=== PATIENT | female | born 1985 | race Caucasian/White ===

== ENCOUNTER 2019-09-25 17:39 | Observation (INO) | payer OTHER ==
[2019-09-25] MEDS ORDERED: Ondansetron PF 4 MG/2 ML Vial ONE (18:02)
[2019-09-25 18:27] LABS: #Lymphocytes 1.4 thou/uL (1.20-3.40); #Monocytes 0.1 thou/uL (0.11-0.59); #Neutrophils 5.3 thou/uL (1.40-6.50); %Basophils 0.5 % (0.0-1.0); %Eosinophils 0.1 % (0.0-10.0); %Lymphocytes 20.2 % (21.0-51.0); %Monocytes 1.5 % (0.0-10.0); %Neutrophils 77.7 % (42.0-75.0); Hemoglobin 11.1 g/dL (12.0-16.0); Mean Corpuscular HGB CONC 31.7 g/dL (32.0-36.0); Mean Corpuscular Hemoglobin 28.1 pg (27.0-31.0); Mean Corpuscular Volume 88.7 fL (78.0-98.0); Mean Platelet Volume 8.5 fL (7.4-10.4); Platelet Count 364 thou/uL (130-400); RBC Distribution Width 14.7 % (11.5-14.5); Red Blood Cell (RBC) Count 3.94 mill/uL (4.20-5.40); White Blood Cell (WBC) Count 6.8 thou/uL (4.8-10.8)
[2019-09-25 18:34] LABS: BHCG - Serum Negative (NEGATIVE); Pregs Control Background? CLEAR/WHITE (CLR/WHITE); Pregs Control Bar Appear? YES (CONTROL BAR)
[2019-09-25] MEDS ORDERED: Haloperidol Lactate 5 MG/ML VIAL ONE (18:38)
[2019-09-25 18:41] LABS: ALT (SGPT) 14 U/L (8-55); AST (SGOT) 12 U/L (5-34); Albumin 3.8 g/dL (3.5-5.0); Alkaline Phosphatase 66 U/L (40-110); Anion Gap 13 mmol/L (10-20); BUN (Urea Nitrogen) 5 mg/dL (7.0-18.7); Bilirubin, Total 0.2 mg/dL (0.2-1.2); Calc. Creatinine Clearance 0 mL/min (70-130); Calcium 9.9 mg/dL (7.8-10.44); Carbon Dioxide 24 mmol/L (22-29); Chloride 111 mmol/L (98-107); Estimated GFR-MDRD 69; Globulin 2.9 g/dL (2.4-3.5); Glucose 144 mg/dL (70-105); Lipase 46 U/L (8-78); Potassium 3.8 mmol/L (3.5-5.1); Protein, Total 6.7 g/dL (6.0-8.3); Sodium 144 mmol/L (136-145)
[2019-09-25 18:52] LABS: Bilirubin Negative (Negative); Blood, Urine Negative (Negative); Glucose, Urine (Dipstick) Negative (Negative); Leukocyte Small (Negative); Nitrite Negative (Negative); Protein, Urine (Dipstick) Negative (Neg-Trace); Urobilinogen 0.2 mg/dL (Less than 2)
[2019-09-25] MEDS ORDERED: Promethazine HCl 25 MG/ML VIAL ONE (18:56)
[2019-09-25 18:57] LABS: Clarity Hazy (Clear)
[2019-09-25 19:02] LABS: Bacteria/HPF 1+ HPF (None Seen); RBC/HPF None Seen HPF (0-3)
[2019-09-25] MEDS ORDERED: HYDROcodone/Acetaminophen 5/325 mg Tablet PO PRN ×2 (22:35)
[2019-09-25] MEDS ORDERED: Ondansetron PF 4 MG/2 ML Vial IVP PRN (22:35)
[2019-09-25] MEDS ORDERED: Sodium Chloride 0.9% 1,000 ML IV SCH (22:35)
[2019-09-25] MEDS ORDERED: Acetaminophen 325 MG TAB PO PRN (22:35)
[2019-09-25] MEDS ORDERED: Ondansetron ODT 4 MG TAB SL PRN (22:35)
[2019-09-25 22:52] VITALS: BMI 37.7
[2019-09-25] MEDS ORDERED: Calcium Carbonate 500 MG ChewTAB PO PRN (23:48)
[2019-09-26] MEDS ORDERED: Promethazine HCl 25 MG/ML VIAL IM/IV PRN (00:14)
[2019-09-26] MEDS ORDERED: Enoxaparin Sodium 40 MG/0.4 ML SYRINGE SC SCH (00:30)
[2019-09-26] MEDS: Lactated Ringer's 1,000 ML IV SCH ×3 (00:42→18:05)
[2019-09-26] MEDS: clonazePAM 1 MG TAB PO PRN ×2 (00:42→16:24)
[2019-09-26] MEDS: Promethazine HCl 25 MG in Sodium Chloride 0.9% 50 ML IVPB PRN ×4 (00:50→23:43)
--- NOTE | 2019-09-26 01:03 | PDOC.FPRHP ---
- History of Present Illness Chief Complaint: n/v History of Present Illness: 34yo CF with h/o Scottsburg's, hoshimotos, PTSD, chronic pain who presents as transfer from [place] for intractable n/v and abdominal pain. Pt states sxs started about 7 days ago, had increased n/v, spent about 4 days in bed with generalized fatigue. Then presented to [facility] where she was admitted for 3 days, discharged this morning. Per pt report they did not find any cause of her n/v or pain and stated she was safe for discharge today. She then presented to [facility] in [place] where she was told her labs and vitals were normal and no reason for admission. Then presented to [facility] for further eval and management. Pt states abdominal pain is diffuse with worsening in the LLQ. States pain is sharp-stabbing in nature, rated 6->8/10. Intermittent. Worse with bowel movement and urination. Had associated diarrhea for 2 days which has since resolved for past 2 days. Subjective fever and chills. Decreased PO intake, vomiting with any PO solid or liquids. Pain radiates to back. States nausea has been improved with phenergan and currently tolerating crackers and soda. Endorses dysuria, no frequency or hematuria. ED Course: Given morphine 2mg x2, zofran, phenergan, and transferred to [facility] for further eval and management. - Allergies/Adverse Reactions Allergies Allergy/AdvReac Type Severity Reaction Status Date / Time Penicillins Allergy Verified 09/25/19 22:44 clindamycin AdvReac Nausea Verified 09/25/19 22:44 gabapentin AdvReac Nausea Verified 09/25/19 22:44 - Home Medications Medication Instructions Recorded Confirmed Type HYDROcodone/Acetaminophen [[place] 1 each PO QID PRN 09/25/19 09/25/19 History 7.5-325 Tablet] Hydrocortisone 10 mg PO 1700 09/25/19 09/25/19 History Hydrocortisone 20 mg PO DAILY 09/25/19 09/25/19 History Levothyroxine Sodium [Synthroid] 75 mcg PO DAILY 09/25/19 09/25/19 History Ondansetron [Ondansetron Odt] 8 mg PO QID PRN 09/25/19 09/25/19 History Promethazine HCl [Phenergan 25 mg MN Q4HR PRN 09/25/19 09/25/19 History Suppository] clonazePAM [Clonazepam] 1 mg PO TID PRN 09/25/19 09/25/19 History hydrOXYzine [Atarax] 25 mg PO BID 09/25/19 09/25/19 History - History PMHx: Primary Scottsburg's for past 8 years, Hoshimotos, PTSD, anxiety. H/o steroid psychosis. PSHx: Partial thyroidectomy 09/04 for suspicious nodule with noncancerous pathology, carlos, tonsilectomy FHx: Unsure, parents . PVD in grandmother. Social: E-cigs, no EtOH or illicits. . - Review of Systems General: reports: fever/chills, weight/appetite/sleep changes, fatigue Eyes: denies: vision changes ENT: denies: nasal congestion, rhinorrhea Respiratory: denies: cough, congestion, shortness of breath Cardiovascular: denies: chest pain, palpitation, edema Gastrointestinal: reports: nausea, vomiting, diarrhea (now resolved), abdominal pain (LLQ radiating to back) Genitourinary: reports: dysuria. denies: incontinence, discharge Skin: denies: rashes Musculoskeletal: reports: pain (chronic back pain) Psychological: reports: anxiety (increased with recent hospitalizations) - Vital signs BP: 104/61 HR: 79 RR: 18 Pox: 99% on RA Wt: 96kg - Physical Exam Constitutional: NAD, awake, alert and oriented, well developed (very anxious) HEENT: PERRLA, EOMI, oropharynx clear, other (dry mucous membranes) Neck: supple, trachea midline, other (scar from recent thyroidectomy, c/d/i) Heart: RRR, normal S1/S2, no murmurs/rubs/gallops, pulses present, no edema Lungs: CTAB, no respiratory distress, good air movement, no rales/rhonchi, no wheezing Abdomen: soft, bowel sounds present, other (mild diffuse TTP, worse LLQ. CVA tenderness. No rebound or guarding. No paritoneal signs.) Neurological: no focal deficit Psychiatric: other (anxious) FMR H&P: Results - Labs Result Diagrams: 09/26/19 05:00 09/26/19 05:00 Lab results: WBC 6.8 thou/uL (4.8-10.8) 09/25/19 18:15 Hgb 11.1 g/dL (12.0-16.0) L 09/25/19 18:15 Hct 34.9 % (36.0-47.0) L 09/25/19 18:15 MCV 88.7 fL (78.0-98.0) 09/25/19 18:15 Plt Count 364 thou/uL (130-400) 09/25/19 18:15 Neutrophils % 77.7 % (42.0-75.0) H 09/25/19 18:15 Sodium 144 mmol/L (136-145) 09/25/19 18:15 Potassium 3.8 mmol/L (3.5-5.1) 09/25/19 18:15 Chloride 111 mmol/L (98-107) H 09/25/19 18:15 Carbon Dioxide 24 mmol/L (22-29) 09/25/19 18:15 BUN 5 mg/dL (7.0-18.7) L 09/25/19 18:15 Creatinine 0.92 mg/dL (0.6-1.1) 09/25/19 18:15 Glucose 144 mg/dL (70-105) H 09/25/19 18:15 Calcium 9.9 mg/dL (7.8-10.44) 09/25/19 18:15 Total Bilirubin 0.2 mg/dL (0.2-1.2) 09/25/19 18:15 AST 12 U/L (5-34) 09/25/19 18:15 ALT 14 U/L (8-55) 09/25/19 18:15 Alkaline Phosphatase 66 U/L (40-110) 09/25/19 18:15 Serum Total Protein 6.7 g/dL (6.0-8.3) 09/25/19 18:15 Albumin 3.8 g/dL (3.5-5.0) 09/25/19 18:15 Lipase 46 U/L (8-78) 09/25/19 18:15 Urine Ketones Negative mg/dL (Negative) 09/25/19 18:38 Urine Blood Negative (Negative) 09/25/19 18:38 Urine Nitrite Negative (Negative) 09/25/19 18:38 Ur Leukocyte Esterase Small (Negative) H 09/25/19 18:38 Urine RBC None Seen HPF (0-3) 09/25/19 18:38 Urine WBC 4-6 HPF (0-3) A 09/25/19 18:38 Ur Squamous Epith Cells 11-20 HPF (0-3) A 09/25/19 18:38 Urine Bacteria 1+ HPF (None Seen) A 09/25/19 18:38 FMR H&P: A/P - Problem List (1) Intractable nausea and vomiting Current Visit: Yes Status: Acute Code(s): R11.2 - NAUSEA WITH VOMITING, UNSPECIFIED (2) Abdominal pain Current Visit: Yes Status: Acute Code(s): R10.9 - UNSPECIFIED ABDOMINAL PAIN Qualifiers: Abdominal location: left lower quadrant Qualified Code(s): R10.32 - Left lower quadrant pain (3) Scottsburg disease Current Visit: Yes Status: Chronic Code(s): E27.1 - PRIMARY ADRENOCORTICAL INSUFFICIENCY (4) Hypothyroidism Current Visit: Yes Status: Chronic Code(s): E03.9 - HYPOTHYROIDISM, UNSPECIFIED (5) Anxiety Current Visit: Yes Status: Chronic Code(s): F41.9 - ANXIETY DISORDER, UNSPECIFIED (6) Chronic pain Current Visit: Yes Status: Chronic Code(s): G89.29 - OTHER CHRONIC PAIN - Plan 34yo CF with h/o Addisons, anxiety, PTSD, chronic pain presents for intractable n/v and LLQ abdominal pain #Intractable n/v with LLQ abdominal pain - Sxs for ~1week, decreased PO intake, recently admitted to [facility] in [facility] for same sxs - VSS, MMM, lytes WNL. Lipase 46, UPT neg, LFTs WNL. - Will obtain records from recent hospitalization - Unclear etiology - Addisons flare vs recent gastroenteritis causing need for stress does steroids vs anxiety vs UTI - No imaging in ED, will obtain CT Abd/pelvis - UA from ED +LE, WBC, and bacteria however many squamous - will obtain repeat UA via straight cath - Prn zofran and phenergan - Will check Mg, Phos, and A1C - Will need GI consult in AM #Scottsburg's - Will increase home hydrocortisone 3x for stress doses -> 60mg in AM and 30mg in PM - LR @ 120cc/hr - BP stable, will cont to monitor VSS #Chronic Abdominal pain - Will cont home [place] prn #Anxiety/PTSD - Will cont home Klonopin prn #Hypothyroidism - Will cont home levothyroxine, will check TSH - recent partial thyroidectomy -> suspicious nodule but benign pathology Code: Full Diet: Regular as tolerated IVF: LR @120cc/hr VTE: Lovenox PCP: JAMAR Lopez Disposition/LOS: Admit to medical obs for intractable n/v, will obtain CT abd/pelvis, monitor lytes, prn nausea meds. Recommend GI consult in AM. FMR H&P: Upper Level - Pertinent history I was present with the internal corrosion specialist during the HPI. I made edits to above document as needed. I agree with above. - Pertinent findings Pt was resting comfortably in bed. Pt was shaking at times during the interview. Mucous membranes were moist. Cap refill<2. Abdomen: TTP in all quadrants. No rebound or guarding. No masses. Psoas sign negative. CVA tenderness noted bilaterally. - Plan Date/Time: 09/26/19 5654 I, Arnulfo Moss, PGY-3, have evaluated this patient and agree with findings/ plan as outlined by internal corrosion specialist resident. Pertinent changes/additions are listed here. I have reviewed the above plan and made edits as needed. See above for detailed plan. At this time will admit for intractable n/v. Pt does not appear to be acutely ill or malnourished even though this problem has been present for 7 days. Will get records from previous hospitlization. Will continue prn nausea medicine. May adjust regimen to reglan as possibly gastroparesis. Possible cause could be related to norco use. Discussed with patient. Will continue for now to prevent withdrawl. Will continue to advance diet as tolerated. May need GI consult as patient has had multiple evaluations at multiple hospitals without resolution of sx's. Addendum - Attending - Attending Attestation Date/Time: 09/26/19 8806 I personally evaluated the patient and discussed the management with Dr. Benito. I agree with the History, Examination, Assessment and Plan documented above with any addition or exceptions noted below.
[2019-09-26 01:09] LABS: Magnesium 1.7 mg/dL (1.6-2.6); Phosphorus 2.6 mg/dL (2.3-4.7)
--- NOTE | 2019-09-26 05:14 | PDOC.FM ---
- Subjective Subjective: Mrs. Lewis was sleeping soundly in her hospital bed at the time of evaluation. She was extremely difficult to rouse, and only mumbled a few words at a time when asked any questions about her current nausea and pain levels. Per nursing staff, she has not complained of any breakthrough pain and was able to complete her PO contrast regimen in preparation for her CT ABD/Pelvis later this morning. - Objective Vital Signs & Weight: Vital Signs (12 hours) Pulse Resp BP Pulse Ox 09/25/19 22:08 79 18 104/61 99 Weight Weight 96.661 kg I&O: 09/24/19 09/25/19 09/26/19 06:59 06:59 06:59 Intake Total 50 Balance 50 Result Diagrams: 09/26/19 05:00 09/26/19 05:00 Phys Exam - Physical Examination Constitutional: NAD Neck: supple, full ROM Respiratory: no wheezing, no rales, no rhonchi, clear to auscultation bilateral Cardiovascular: RRR, no significant murmur, no rub Gastrointestinal: soft, non-tender, positive bowel sounds Musculoskeletal: no edema, pulses present Neurological: non-focal, moves all 4 limbs Deviation from normal: Sleepy, minimally aware of surroundings Skin: no rash Dx/Plan - Plan Plan: 1. Intractable N/V, w/ LLQ ABD Pain -Symptoms have been ongoing for ~1W, w/ decreased PO intake -Patient was recently admitted to [facility] in [facility] for same symptoms, DC'd w/o diagnosis -DC'd from multiple other [facility] hospitals with minimal change from above -Physical exam unremarkable - CBC and CMP generally unremarkable -Lipase: 46 / AST: 12 / ALT: 14 -bHCG: Negative -Will obtain records from recent hospitalization -Unclear etiology - Addisonian Flare vs. gastroenteritis vs. anxiety vs. UTI -CT ABD/Pelvis: Pending -UA revealed +LE, WBC, and +bacteria, but also squamous epithelial cells - will obtain repeat UA via straight cath -PRN Zofran and Phenergan, consider Reglan or Haldol for breathrough nausea -M.7 -Phos: 2.6 -HgA1C: 5.0 -Consider GI consult on 09/26 2. Nunda's Disease -Will increase home hydrocortisone 3x for stress doses -> 60mg in AM and 30mg in PM -LR @ 120 ml/hr -BP stable, will continue to monitor VSS 3. Chronic ABD Pain -Will continue home [place] 7.5/325 regimen 4. Anxiety/PTSD -Will continue home Clonazepam regimen 5. Hypothyroidism -TSH: 2.3 -Will continue home Levothyroxine regimen -Recent partial thyroidectomy for suspicious nodule - pathology benign Code: Full Diet: Regular IVF: LR @120cc/hr VTE: Lovenox 40 mg SC PCP: JAMAR - [place] Dispo: Patient is currently stable on Medical Floor. Aim to control N/V and await results of CT ABD/Pelvis and UA. 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 Evaluate clinically for resolution of symptoms - consider GI consult in AM. Addendum - Attending - Attending Attestation Date/Time: 09/26/19 5335 I personally evaluated the patient and discussed the management with Dr. Alva I agree with the History, Examination, Assessment and Plan documented above with any addition or exceptions noted below- Patient sleepy but arouses. States abdominal pain has continued primarily in LUQ and epigastric area. No vomiting since yesterday. Afebrile VSS. A/P: 1) Abdominal pain unclear etiology- CT abd/ pelvis pending. Continue antiemetics. GI consult.
[2019-09-26] MEDS: Levothyroxine Sodium 75 MCG TAB PO SCH ×2 (05:57→09:21)
[2019-09-26 06:05] LABS: #Lymphocytes 3.5 thou/uL (1.20-3.40); #Monocytes 0.6 thou/uL (0.11-0.59); #Neutrophils 3.3 thou/uL (1.40-6.50); %Basophils 0.6 % (0.0-1.0); %Eosinophils 0.5 % (0.0-10.0); %Lymphocytes 47.1 % (21.0-51.0); %Monocytes 7.5 % (0.0-10.0); %Neutrophils 44.4 % (42.0-75.0); Hemoglobin 9.5 g/dL (12.0-16.0); Mean Corpuscular HGB CONC 32.9 g/dL (32.0-36.0); Mean Corpuscular Volume 88.1 fL (78.0-98.0); Mean Platelet Volume 8.4 fL (7.4-10.4); Platelet Count 340 thou/uL (130-400); RBC Distribution Width 14.2 % (11.5-14.5); Red Blood Cell (RBC) Count 3.28 mill/uL (4.20-5.40); White Blood Cell (WBC) Count 7.4 thou/uL (4.8-10.8)
[2019-09-26 06:35] LABS: ALT (SGPT) 9 U/L (8-55); AST (SGOT) 10 U/L (5-34); Albumin 3.1 g/dL (3.5-5.0); Alkaline Phosphatase 49 U/L (40-110); Anion Gap 9 mmol/L (10-20); BUN (Urea Nitrogen) 6 mg/dL (7.0-18.7); Bilirubin, Total 0.2 mg/dL (0.2-1.2); Calc. Creatinine Clearance 150 mL/min (70-130); Calcium 9.2 mg/dL (7.8-10.44); Carbon Dioxide 25 mmol/L (22-29); Chloride 112 mmol/L (98-107); Estimated GFR-MDRD 82; Globulin 2.3 g/dL (2.4-3.5); Glucose 78 mg/dL (70-105); Potassium 3.6 mmol/L (3.5-5.1); Protein, Total 5.4 g/dL (6.0-8.3); Sodium 142 mmol/L (136-145)
[2019-09-26] MEDS: HYDROcodone/Acetaminophen 7.5/325 mg Tablet PO PRN ×2 (07:14→14:35)
[2019-09-26 07:39] LABS: Bacteria/HPF None Seen HPF (None Seen); Bilirubin Negative (Negative); Blood, Urine Negative (Negative); Clarity Clear (Clear); Glucose, Urine (Dipstick) Normal (Negative); Leukocyte Negative Leu/uL (Negative); Nitrite Negative (Negative); Protein, Urine (Dipstick) Negative (Neg-Trace); RBC/HPF 0-3 HPF (0-3); Squamous Epithelial 0-3 HPF (0-3); Urobilinogen Normal mg/dL (Less than 2); WBC/HPF 0-3 HPF (0-3)
[2019-09-26] MEDS ORDERED: Prevnar 13-Val Conj/PF 0.5 ML SYRINGE IM ONE (09:00)
[2019-09-26] MEDS: Famotidine 20 MG TAB PO SCH ×2 (09:07→21:01)
[2019-09-26] MEDS: hydrOXYzine 25 MG TAB PO SCH ×2 (09:07→21:01)
--- NOTE | 2019-09-26 09:08 | CT ---
CT Abdomen Pelvis W Con History: Nausea and vomiting left lower quadrant pain Comparison: CT abdomen and pelvis April 2018 Findings: Mild atelectatic changes lung bases. No pericardial effusion. There is a hypodensity in hepatic segment IVb suggestive of a cyst. Prior cholecystectomy. The spleen, adrenal glands, pancreas are unremarkable. No hydronephrosis. No dilated loops of large or small bowel. No dilated loops of large or small bowel. Impression: 1. No acute intra-abdominal abnormality. 2. Mild superficial anterior subcutaneous edema of the right leg the mildly enlarged superficial lymp h node axial image 94. Recommend correlation for underlying cellulitis.
[2019-09-26] MEDS: Hydrocortisone Sod Succ/PF 100 mg/2 ml Vial IVP SCH (09:27)
[2019-09-26] MEDS: Enoxaparin Sodium 40 MG/0.4 ML SYRINGE SC SCH (09:32)
[2019-09-26] MEDS ORDERED: Dicyclomine 10 MG CAP PO SCH (14:42)
[2019-09-26 16:24] LABS: Iron 29 ug/dL (50-170); Iron Binding Capacity, Total 304 mcg/dL (265-497)
[2019-09-26] MEDS ORDERED: Ketorolac Tromethamine 60 MG/2 ML VIAL IM SCH (18:15)
[2019-09-26] MEDS: Dicyclomine 10 MG/5 ML UDCUP PO SCH ×2 (18:17→21:24)
[2019-09-26] MEDS ORDERED: Haloperidol Lactate 5 MG/ML VIAL SLOW IVP PRN (20:08)
[2019-09-26] MEDS ORDERED: Hydrocortisone Sod Succ/PF 100 mg/2 ml Vial IVP SCH (21:00)
[2019-09-26] MEDS: Morphine 4 MG/ML VIAL SLOW IVP PRN (21:16)
[2019-09-27] MEDS: Lactated Ringer's 1,000 ML IV SCH ×2 (04:22→13:45)
[2019-09-27] MEDS ORDERED: Morphine 2 MG/ML SYRINGE SLOW IVP SCH (04:45)
[2019-09-27 05:46] LABS: #Eosinphils 0.1 thou/uL (0.0-0.7); #Lymphocytes 2.9 thou/uL (1.20-3.40); #Monocytes 0.5 thou/uL (0.11-0.59); #Neutrophils 3.3 thou/uL (1.40-6.50); %Basophils 0.6 % (0.0-1.0); %Eosinophils 0.9 % (0.0-10.0); %Lymphocytes 42.4 % (21.0-51.0); %Monocytes 7.3 % (0.0-10.0); %Neutrophils 48.8 % (42.0-75.0); Hemoglobin 9.9 g/dL (12.0-16.0); Mean Corpuscular HGB CONC 32.7 g/dL (32.0-36.0); Mean Corpuscular Hemoglobin 28.9 pg (27.0-31.0); Mean Corpuscular Volume 88.4 fL (78.0-98.0); Mean Platelet Volume 8.2 fL (7.4-10.4); Platelet Count 360 thou/uL (130-400); RBC Distribution Width 14.2 % (11.5-14.5); Red Blood Cell (RBC) Count 3.44 mill/uL (4.20-5.40); White Blood Cell (WBC) Count 6.7 thou/uL (4.8-10.8)
[2019-09-27 06:12] LABS: ALT (SGPT) 10 U/L (8-55); AST (SGOT) 10 U/L (5-34); Albumin 3.1 g/dL (3.5-5.0); Alkaline Phosphatase 53 U/L (40-110); Anion Gap 12 mmol/L (10-20); BUN (Urea Nitrogen) 5 mg/dL (7.0-18.7); Bilirubin, Total 0.2 mg/dL (0.2-1.2); Calc. Creatinine Clearance 150 mL/min (70-130); Calcium 9.4 mg/dL (7.8-10.44); Carbon Dioxide 23 mmol/L (22-29); Chloride 111 mmol/L (98-107); Estimated GFR-MDRD 80; Globulin 2.4 g/dL (2.4-3.5); Glucose 84 mg/dL (70-105); Potassium 3.7 mmol/L (3.5-5.1); Protein, Total 5.5 g/dL (6.0-8.3); Sodium 142 mmol/L (136-145)
[2019-09-27] MEDS: Promethazine HCl 25 MG in Sodium Chloride 0.9% 50 ML IVPB PRN (06:27)
[2019-09-27] MEDS: Levothyroxine Sodium 75 MCG TAB PO SCH (06:30)
--- NOTE | 2019-09-27 09:12 | PDOC.FM ---
- Subjective Subjective: Mrs. Lewis was seated in a wheelchair and being prepped for transport to her EGD at the time of evaluation. She continues to complain of abdominal pain and 1 episode of nausea, but denies any chest pain, shortness of breath or diarrhea. - Objective Vital Signs & Weight: Vital Signs (12 hours) Temp Pulse Resp BP Pulse Ox 09/27/19 08:00 98.1 F 74 18 131/61 99 09/27/19 05:53 97/53 L 09/27/19 04:22 97.9 F 79 18 90/55 L 96 Weight Weight 98.928 kg I&O: 09/26/19 09/27/19 09/28/19 06:59 06:59 06:59 Intake Total 50 Balance 50 Result Diagrams: 09/27/19 05:13 09/27/19 05:13 Phys Exam - Physical Examination Constitutional: NAD HEENT: moist MMs, sclera anicteric, oral pharynx no lesions Neck: supple, full ROM Respiratory: no wheezing, no rales, no rhonchi, clear to auscultation bilateral Cardiovascular: RRR, no significant murmur, no rub Gastrointestinal: soft, non-tender, no distention Musculoskeletal: no edema, pulses present Neurological: non-focal, moves all 4 limbs Psychiatric: normal affect Skin: no rash Dx/Plan - Plan Plan: 1. Intractable N/V, w/ LLQ ABD Pain -Symptoms have been ongoing for ~1W, w/ decreased PO intake -Patient was recently admitted to [facility] in [facility] for same symptoms, DC'd w/o diagnosis -DC'd from multiple other [facility] with minimal change from above -Physical exam unremarkable - CBC and CMP generally unremarkable -Lipase: 46 / AST: 12 / ALT: 14 -bHCG: Negative -Unclear etiology - Addisonian Flare vs. gastroenteritis vs. anxiety vs. UTI -CT ABD/Pelvis: NAF -UA (Straight Cath): Unremarkable -PRN Zofran and Phenergan, consider Reglan or Haldol for breakthrough nausea -M.7 -Phos: 2.6 -HgA1C: 5.0 -GI Consult: Pending, plan for EGD later this AM 2. Rahul's Disease -Will increase home hydrocortisone 3x for stress doses -> 60mg in AM and 30mg in PM -Continue stress dosing prior to EGD -LR @ 120 ml/hr -BP stable, will continue to monitor VSS 3. Chronic ABD Pain -Will continue home [place] 7.5/325 regimen -Morphine 4 mg IVP Q4H if patient remains normotensive 4. Anxiety/PTSD -Will continue home Clonazepam regimen 5. Hypothyroidism -TSH: 2.3 -Will continue home Levothyroxine regimen -Recent partial thyroidectomy for suspicious nodule - pathology benign Code: Full Diet: Regular IVF: LR @120cc/hr VTE: Lovenox 40 mg SC PCP: JAMAR - [place] Dispo: Patient is currently stable on Medical Floor. Aim to control N/V and await GI recommendations and results of EGD. 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 Evaluate clinically for resolution of symptoms. Expected LOS < 24H Addendum - Attending - Attending Attestation Date/Time: 09/27/19 1212 I personally evaluated the patient and discussed the management with Dr. Rodriges I agree with the History, Examination, Assessment and Plan documented above with any addition or exceptions noted below. Patient now sp EGD. Noted to have gastritis. Bx taken. Likely related to steroid use. Will start carafate. ONIEL antiemetic. Re-evaluate later this afternoon. Stop IVFs. Likely d/c to home. Anitra
--- NOTE | 2019-09-27 09:33 | CON ---
DATE OF CONSULTATION: 09/26/2019 REASON FOR CONSULTATION: Abdominal pain, nausea, and vomiting, persistent. HISTORY OF PRESENT ILLNESS: Ligia Lewis is a very pleasant 34-year-old female, who was hospitalized a week ago at [facility] in [place] for 3 days for abdominal pain, nausea, and vomiting. Her symptoms started approximately 7 days ago. She is unable to keep anything down. Every time she tried to eat or drink, something keeps coming out. She has had recurrent nausea and vomiting over the last 7 days. She also had diarrhea for a couple of days and diarrhea resolved. She had had no fever. There is no history of hematochezia. No history of any melena. No similar episodes in the past. The patient's workup was basically negative in [place], and sent home on some medication for nausea and vomiting. She went back to [facility] in [place] with the same symptoms and the evaluation negative. Subsequently, she went to [facility] and she was hospitalized at [facility]. At the time of the consultation, she appears very comfortable, in no acute distress. She states that she wants some pain medication. The pain is predominantly over the left lower quadrant and going towards the back. She has had no dysuria, hematuria, or frequent urination. She had diarrhea transiently throughout the day and then resolved. The patient has had no fever or chills. She has no other relevant symptoms. Denies any heartburn or indigestion. She has no abdominal pain. She has persistent nausea and vomiting and was unable to keep anything down. The patient's blood tests including CBC, chem-7, liver function tests, amylase and lipase are normal. She also has abdominal CAT scan. The CAT scan basically is negative. She has no other known history. ALLERGIES: NONE. SOCIAL HISTORY: The patient is . She does use e-cigarettes. Does not drink any alcohol. No history of drug abuse. MEDICAL ILLNESSES: 1. Obesity. 2. 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 3. Estrella disease/hypothyroidism. 4. PTSD. 5. Chronic anxiety. SURGERIES: 1. Laparoscopic cholecystectomy many years ago, but she is not sure whether she had gallstones. 2. Partial parathyroidectomy 3 weeks ago for a thyroid nodule and biopsy came back noncancerous. 3. No other surgeries. FAMILY HISTORY: Both parents when she was 14 years old. MENSTRUAL HISTORY: Irregular cycles. LMP 3 weeks ago. MEDICATION LIST: Reviewed. REVIEW OF SYSTEMS: A 10 point system reviewed. CONSTITUTIONAL: No history of any fever. No history of weight loss. Energy level is good until a week ago. HEAD: No chronic headache. No dizziness. EYES: No diplopia. No double vision. ENT: No nose bleed. No sore throat. No hearing loss. NECK: Recent thyroidectomy 3 weeks ago. LUNGS: No chronic coughing. No hemoptysis. No dyspnea. CARDIOVASCULAR SYSTEM: No chest pain. No palpitation. No dyspnea, orthopnea, or PND. GI: As in history of present illness. : No dysuria or hematuria. MUSCULOSKELETAL: Unremarkable. NEUROLOGIC: Unremarkable. ENDOCRINOLOGIC: Unremarkable. HEMATOLOGIC: Unremarkable. PHYSICAL EXAMINATION: GENERAL: She appears very comfortable, in no acute distress. She is obese. VITAL SIGNS: Pulse is 76, blood pressure 127/68. HEENT: Conjunctivae are clear. NECK: Supple. No adenitis or thyromegaly. CARDIOVASCULAR SYSTEM: 1st and 2nd heart sounds normal. LUNGS: Clear to auscultation. ABDOMEN: Soft. Abdomen exam is very benign. Abdomen is slightly tender over the left lower quadrant to palpation. Overall, the exam is very benign . abdomen. EXTREMITIES: No edema. LABORATORY DATA: WBC 6400, hemoglobin 11.1, hematocrit 32.9, MCV normal, polymorphs 77, lymphocytes 20. Chem-7 is normal. Lipase is now 46. Liver function tests normal. Glucose 82. Abdominal CAT scan shows no acute findings to explain the patient's symptoms. CLINICAL IMPRESSION: 1. A 34-year-old female with persistent nausea, vomiting, and abdominal pain. The physical finding is almost benign as her abdomen is very benign. Also lab data showed no leukocytosis. Her liver function tests are normal. Also, her lipase is normal. Several possibilities also including viral syndrome. 2. Irritable bowel syndrome , worsening of Meriden's disease, which could also account for nausea and vomiting symptoms. 3. Obesity. 4. Meriden disease. 5. Hypothyroidism/Estrella disease. 6. Posttraumatic stress disorder. 7. Anxiety. RECOMMENDATIONS: Symptomatic treatment. The patient is worried about having some problem with upper GI tract. She is felt to have an EGD because of her nausea and vomiting. This will be done tomorrow morning. In the meantime, we would recommend symptomatic treatment. Job ID: [id number] MTDD
[2019-09-27] MEDS: Hydrocortisone Sod Succ/PF 100 mg/2 ml Vial IVP SCH (09:35)
[2019-09-27] MEDS ORDERED: Lidocaine 1% PF 5 ML VIAL ONE (10:31)
[2019-09-27] MEDS ORDERED: PROPOFOL 200 MG/20 ML VIAL ONE (10:31)
[2019-09-27] MEDS ORDERED: Fentanyl 100 MCG/2 ML VIAL ONE (11:10)
[2019-09-27] MEDS ORDERED: Promethazine HCl 25 MG/ML VIAL ONE (11:11)
--- NOTE | 2019-09-27 12:00 | OP ---
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 PROCEDURE PERFORMED: Esophagogastroduodenoscopy with gastric biopsies. INDICATION: Nausea and vomiting, and abdominal pain. MEDICATIONS: See Anesthesia record. FINDINGS: After discussion of the risks, benefits, and alternatives of the procedure, informed consent was obtained and witnessed. Pre-endoscopic cardiopulmonary examination was satisfactory. Time-out was performed before sedation was achieved. Sedation was achieved with Anesthesia assistance in the endoscopy unit. A Pentax adult upper endoscope was placed into the oropharynx and passed through the cricopharyngeus under direct visualization. The esophageal mucosa appeared normal throughout with a normal-appearing Z-line. The endoscope was advanced into the stomach. Forward and retroflexed views of the entire gastric mucosa were obtained. In the gastric antrum, there is patchy erythema, friability, and a few small shallow erosions consistent with erosive gastritis. Biopsies were obtained from the gastric antrum and body to rule out H pylori infection. The endoscope was advanced through the pylorus and into the first and second portions of the duodenum, which appeared normal. The stomach appeared otherwise normal. The upper endoscope was completely withdrawn and the patient allowed to recover. The patient tolerated the procedure well. There were no immediate postprocedure complications. IMPRESSION: 1. Mild erosive gastritis in the antrum. Biopsied to rule out Helicobacter pylori. 2. Otherwise normal esophagogastroduodenoscopy. RECOMMENDATIONS: 1. Pantoprazole 40 mg twice daily. 2. Advance diet as tolerated. Job ID: [id number]
[2019-09-27] MEDS: Famotidine 20 MG TAB PO SCH (12:12)
[2019-09-27] MEDS: hydrOXYzine 25 MG TAB PO SCH (12:12)
[2019-09-27] MEDS: Dicyclomine 10 MG/5 ML UDCUP PO SCH ×3 (12:13→18:07)
[2019-09-27] MEDS: Enoxaparin Sodium 40 MG/0.4 ML SYRINGE SC SCH (12:13)
[2019-09-27] MEDS: Morphine 4 MG/ML VIAL SLOW IVP PRN (13:37)
[2019-09-27] MEDS ORDERED: Promethazine HCl 25 MG SUPP PR PRN (15:26)
[2019-09-27] MEDS: HYDROcodone/Acetaminophen 7.5/325 mg Tablet PO PRN (16:01)
[2019-09-27] MEDS ORDERED: Sucralfate 1 GM TAB PO SCH (17:00)
[2019-09-27 20:27] VITALS: BP 106/54; TEMP 98.1
--- NOTE | 2019-09-28 13:55 | DIS ---
DATE OF ADMISSION: 09/25/2019 DATE OF DISCHARGE: 09/27/2019 RESIDENT: Kobe Alva MD DISCHARGE ATTENDING: Sania Kc MD CONSULTS: Dr. Tripp, Gastroenterology. PROCEDURES: Abdomen and pelvis CT scan, which revealed no acute findings. Colonoscopy, which revealed mild erosive gastritis with suspicion of H pylori infection requiring multiple samples. PRIMARY DIAGNOSIS: Abdominal pain. SECONDARY DIAGNOSES: 1. Chronic pain. 2. Anxiety. 3. Hypothyroidism. 4. Rahul's disease. 5. Post-traumatic stress disorder. 6. Intractable nausea and vomiting. DISCHARGE MEDICATIONS: 1. Amitriptyline 75 mg p.o. daily. 2. Pantoprazole 40 mg p.o. b.i.d. 3. Carafate 1 g p.o. daily. DISCONTINUED MEDICATIONS: 1. Hydrocodone/acetaminophen 7.5/325. 2. Amitriptyline 75 mg p.o. 3. Calcium carbonate 1000 mg p.o. q.4 hours. 4. Clonazepam 1 mg p.o. t.i.d. 5. Bentyl 10 mg p.o. q.i.d. 6. Lovenox 40 mg SC daily. 7. Famotidine 20 mg p.o. b.i.d. 8. Fentanyl 100 mcg. 9. Haldol 0.5 mg q.4 hours. 10. Hydrocortisone 30 mg IVP q.p.m. 11. Hydrocortisone 60 mg IVP q.a.m. 12. Hydroxyzine 25 mg p.o. b.i.d. 13. Lactated Ringer's 1000 mL at 120 mL/h. 14. Levothyroxine 75 mcg. 15. Morphine 4 mg q.4 hours for pain. 16. Morphine 2 mg q.2 hours for breakthrough pain. 17. Pantoprazole 40 mg p.o. b.i.d. 18. Promethazine 51 mL at 204 mL/h q.6 hours. 19. Phenergan 25 mg SC q.4 hours. 20. Carafate 1 g daily. HISTORY OF PRESENT ILLNESS/HOSPITAL COURSE: Ms. Ligia Lewis is a 34-year-old female with past medical history significant for PTSD, chronic pain, [place]'s disease, and Estrella's thyroiditis, who presents to the ER after being discharged from an outside facility, where she had been an inpatient for approximately 1 week for the same symptoms. The patient states that she was discharged without resolution of her nausea and vomiting and was displeased with her level of care. As such, she presented to an outside ED in the adjacent town, in which she stated that she was turned away. She then proceeded to the [facility] ED, where she was admitted and then transferred to [facility] in [place], [place] to be treated for the same symptoms, intractable nausea, vomiting, and abdominal pain. During her hospital stay, she stated that she would like to continue her home Ambia regimen of 7.5/325 t.i.d.; however, she quickly stated that this was not covering her abdominal pain and would like to receive morphine q.4 hours. She made multiple calls to nursing staff during her stay that her pain was not being controlled with morphine and was continually asking for additional doses. Imaging was otherwise negative. Lab values were otherwise unremarkable and no etiology of her abdominal pain could be identified. Gastroenterology was consulted and the patient received an EGD that revealed mild erosive gastritis suspicious for H pylori disease. Multiple biopsies were taken and these are still pending at the time of discharge. The patient was able to tolerate p.o. intake and had multiple meals prior to her discharge. She stated that her abdominal pain and nausea were continuing; however, she thought maybe she could handle it if she had one more dose of morphine prior to discharge. This was denied. On discharge, her vital signs were, temperature 98.1, pulse 94, blood pressure 106/54, respiratory rate 16, O2 saturation 98% on room air. LABORATORY DATA: Lab values revealed a white blood cell count of 6.7, hemoglobin 9.9, hematocrit 30.4, platelet count of 360. Sodium of 142, potassium 3.7, chloride of 111, carbon dioxide 23, BUN 5, creatinine 0.81, glucose 84. Hemoglobin A1c 5, calcium 9.4, phosphorus 2.6, magnesium 1.7. Iron 29, total iron-binding capacity 304, iron percent saturation 10, ferritin 2.42, total bilirubin 0.2, AST 10, ALT 10, alkaline phosphatase 53, total serum protein 5.5, albumin 3.1, lipase 46, TSH 2.3. Serum negative. Urine was unremarkable with no evidence of proteinuria, ketonuria, hematuria, nitrites, bilirubin, or leukocyte esterase. No urine bacteria were seen. DISCHARGE INSTRUCTIONS: 1. Location: Home. 2. Diet: Heart healthy diet. 3. Activity: No restrictions. 4. 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 The patient was encouraged to follow up closely in order to control her chronic pain as there was no identifiable etiology to her abdominal pain during her hospital stay. 5. She was also encouraged to continue to take her iron supplements that she had discontinued prior to arrival. Job ID: [id number]
== END 2019-09-27 20:03 | disposition home or self-care (01) ==
LOC: SCSER 17:39 → 2SW 22:10
PROVIDERS: ADMIT Family Medicine; ATTEND Family Medicine
PROC: 0DB78ZX Excision of Stomach, Pylorus, Via Natural or Artificial Opening Endoscopic, Diagnostic (ICD-10-PCS; principal; 2019-09-27)
DX: K29.60 Other gastritis without bleeding (principal); K31.89 Other diseases of stomach and duodenum; G89.29 Other chronic pain; R10.32 Left lower quadrant pain; E27.1 Primary adrenocortical insufficiency; E06.3 Autoimmune thyroiditis; F41.9 Anxiety disorder, unspecified; E89.0 Postprocedural hypothyroidism; F17.290 Nicotine dependence, other tobacco product, uncomplicated; F43.10 Post-traumatic stress disorder, unspecified; K58.9 Irritable bowel syndrome, unspecified; E66.9 Obesity, unspecified; Z68.38 Body mass index [BMI] 38.0-38.9, adult; Z79.899 Other long term (current) drug therapy; Z88.0 Allergy status to penicillin; Z88.1 Allergy status to other antibiotic agents; Z88.8 Allergy status to other drugs, medicaments and biological substances
CPT/HCPCS: 36415; 74177; 80053; 81001; 81003; 81015; 82728; 83036; 83540; 83550; 83690; 83735; 84100; 84443; 84703; 85025; 88305; 88312; 90471; 90670; 93005; 96361; 96365; 96372; 96375; 96376; G0009; G0378; J1630; J1650; J1720; J2001; J2270; J2405; J2550; J2704; J3010

== ENCOUNTER 2020-02-19 17:47 | Observation (INO) | payer MEDICAID, OTHER ==
--- NOTE | 2020-02-19 18:20 | PDOC.FPRHP ---
- History of Present Illness Chief Complaint: C. diff infection History of Present Illness: 34 y/o F PMHx Estrella thyroiditis, Arthur's disease, anxiety, PTSD presents to the ED as a transfer from [facility] for admission for C. difficile colitis. Patient states that for past 2-3 days she has had about 15-16 episodes of diarrhea a day. She does admit to taking Imodium earlier this morning and has had less frequent bowel movements since. She vomited 2 times yesterday and once this morning. Denies any fever/chills, cough, congestion, chest pain, SOB. She states that she feels weak and her body hurts all over. Patient states she went to the [facility] ED in [place] yesterday evening with abdominal pain, vomiting & diarrhea and was sent home. Then she was called by the ED this morning, told she had C. diff and was sent and Rx for Flagyl but has not taken any. As her symptoms got worse she decided to return to that ED earlier today. Patient says she was diagnosed with C. Diff during her last hospital admission from 01/27- in [place] and had been taking oral Vancomycin treatment for past couple weeks. She also was diagnosed with a Salmonella infection in October 2019 but does not remember which antibiotic she took then. Patient additionally reports she recently took Fluconazole twice for a yeast infection which has improved her vaginal discharge symptoms but still complains of some dysuria. Additionally patient currently complaining of a headache. ED Course: In the ED in [place] the patient was given zofran 4mg, NS 2L boluses, Hydrocortisone 100mg, Bentyl 20mg, Haldol 5mg, Protonix 40mg, Promethazine 25mg. - Allergies/Adverse Reactions Allergies Allergy/AdvReac Type Severity Reaction Status Date / Time Penicillins Allergy Verified 02/19/20 22:11 clindamycin AdvReac Nausea Verified 02/19/20 22:11 gabapentin AdvReac Nausea Verified 02/19/20 22:11 - Home Medications Medication Instructions Recorded Confirmed Type HYDROcodone/Acetaminophen [Almond 1 each PO QID PRN 09/25/19 02/19/20 History 7.5-325 Tablet] Hydrocortisone 10 mg PO 1700 09/25/19 02/19/20 History Hydrocortisone 20 mg PO DAILY 09/25/19 02/19/20 History Ondansetron [Ondansetron Odt] 8 mg PO Q8H PRN 09/25/19 02/19/20 History Promethazine HCl [Phenergan] 25 mg SC Q4HR PRN 09/25/19 02/19/20 History clonazePAM [Clonazepam] 1 mg PO TID PRN 09/25/19 02/19/20 History hydrOXYzine [Atarax] 25 mg PO BID 09/25/19 02/19/20 History DULoxetine [Cymbalta] 60 mg PO DAILY 02/19/20 02/19/20 History Dicyclomine [Bentyl] 10 mg PO QID PRN 02/19/20 02/19/20 History Fludrocortisone Acetate 0.05 mg PO DAILY 02/19/20 02/19/20 History Levothyroxine Sodium [Synthroid] 125 mcg PO DAILY 02/19/20 02/19/20 History - History PMHx: Hypothyroid (Estrella's), Rahul's disease, PTSD, Anxiety PSHx: Partial thyroidectomy 09/04 for suspicious nodule with noncancerous pathology, cholecystectomy, tonsillectomy FHx: Unsure, parents . PVD in grandmother. Grandparents diabetes. Social: E-cigs, no EtOH or illicit drugs. . PCP: Out of town Code Status: Full - Review of Systems General: reports: fatigue. denies: fever/chills, weight/appetite/sleep changes ENT: denies: nasal congestion, rhinorrhea Respiratory: denies: cough, congestion, shortness of breath Cardiovascular: denies: chest pain, edema Gastrointestinal: reports: nausea, vomiting, diarrhea, abdominal pain. denies: constipation, GI bleeding Genitourinary: reports: dysuria. denies: discharge Skin: denies: rashes, jaundice Musculoskeletal: reports: pain (whole body aches). denies: tenderness, swelling Neurological: reports: weakness, other (headache) Psychological: reports: anxiety - Vital signs BP: 113/79, MAP: 91, Pulse: 91, Resp: 17, Temp: 98.1 (Oral), Pain: 7, O2 sat: 97 on (Room Air), Weight 90.26kg - Physical Exam Constitutional: NAD, awake, alert and oriented, well developed HEENT: normocephalic and atraumatic, EOMI, conjunctiva clear, no scleral icterus , grossly normal vision, grossly normal hearing, MMM Neck: supple, FROM, no JVD Chest: no-tender to palpation Heart: pulses present, no edema -Lungs: even respirations with equal chest rise & fall, no respiratory distress Abdomen: soft, no masses/distention -Abdomen: generalized TTP, worse in RLQ & LLQ Musculoskeletal: normal structure, normal tone, ROM grossly normal Neurological: no focal deficit, normal sensation Skin: no rash/lesions, good turgor, no jaundice Heme/Lymphatic: no unusual bruising or bleeding Psychiatric: normal mood and affect FMR H&P: Results - Labs Result Diagrams: 02/20/20 02:17 02/20/20 02:17 Lab results: UA - small LE, otherwise normal Glucose 81, BUN 13, Cr 0.92, Na 135, K 5.4, t. bili 0.2, Alk phos 74, AST 32, ALT 17 WBC 9.9, Hb 10.8, Hct 35.5, Platelet 414 Lactic acid 2.3 FMR H&P: A/P - Problem List (1) C. difficile colitis Current Visit: Yes Status: Acute Code(s): A04.72 - ENTEROCOLITIS D/T CLOSTRIDIUM DIFFICILE, NOT SPCF RECUR (2) Arthur disease Current Visit: No Status: Chronic Code(s): E27.1 - PRIMARY ADRENOCORTICAL INSUFFICIENCY (3) Anxiety Current Visit: No Status: Chronic Code(s): F41.9 - ANXIETY DISORDER, UNSPECIFIED (4) Chronic pain Current Visit: No Status: Chronic Code(s): G89.29 - OTHER CHRONIC PAIN (5) Hypothyroidism Current Visit: No Status: Chronic Code(s): E03.9 - HYPOTHYROIDISM, UNSPECIFIED - Plan Patient is a 34 yo female who presents with abdominal pain & diarrhea is found to have C. Diff colitis at outside ED: #C. difficile colitis -ask nursing staff to request records from [facility] in [place] -given recurrence and previous use of Vancomycin, will start Fidaximicin 200 mg BID for 10 day course -Zofran & Phenergan prn for nausea/vomiting -Bentyl for pain -Lactic acid 2.3, repeat in AM -WBC 9.9 -check stool studies to r/o other additional infectious causes #Dehydration, mild -s/p 2 L NS bolus in [facility] ED -continue maintenance IVF LR @ 125 ml/hr #Iatrogenic Rahul's disease -continue Hydrocortisone at stress dosing 45 mg BID (total 90 mg/day) -continue home meds #Anemia, normocytic -Hgb 10.8 -monitor on AM CBC #Chronic Pain -HEAD OF DRAMA reviewed -continue home Almond #Anxiety -continue home meds: Hydroxyzine, Cymbalta, Clonazepam #Sinus Tachycardia -continue home Metoprolol Diet: Clear liquids VTE: SCDs, Lovenox Code status: FULL Dispo: Stable, admit to observation on medical unit. Start antibiotics and continue to rehydrate. Stool studies ordered & pending. Anticipate LOS <2 days. FMR H&P: Upper Level - Pertinent history 34 y/o F PMHx Estrella thyroiditis, Arthur's disease, anxiety, PTSD presents to the ED from [facility] for c. diff. The patient reports large amounts of diarrhea the past 2-3 days. She had 15-16 bouts of diarrhea yesterday, but then she took imodium today. She also reports 2 episodes of vomiting today. She was diagnosed yesterday at the ER with c. diff. She reports this is her second episode of c. diff and she is on liquid vanc. Her first episode was a couple of weeks ago and her symptoms resolved after a couple of rounds of vanc. She denies any fevers. She has a h/o salmonella infection in the past. She thinks she may have been on antibiotics recently, but isn't sure. She reports a yeast infection and she was treated twice with fluconazole and is now getting better, but she also reports dysuria. She reports headache right now. In the ED in [place] the patient was given zofran 4mg, NS 2L boluses, Hydrocortisone 100mg, Bentyl 20mg, Haldol 5mg, Protonix 40mg, Promethazine 25mg. - Pertinent findings BP: 113/79, MAP: 91, Pulse: 91, Resp: 17, Temp: 98.1 (Oral), Pain: 7, O2 sat: 97 on (Room Air), Weight 90.26kg PE: Gen - alert, oriented, NAD HEENT - dry mucous membranes Abd - non-distended, soft, diffusely tender to palpation with no rebound Labs: UA - small LE, otherwise normal Glucose 81, BUN 13, Cr 0.92, Na 135, K 5.4, t. bili 0.2, Alk phos 74, AST 32, ALT 17 WBC 9.9, Hb 10.8, Hct 35.5, Platelet 414 Lactic acid 2.3 - Plan Date/Time: 02/19/201818 I, Palma Castle MD, PGY-3, have evaluated this patient and agree with findings/ plan as outlined by internet project manager resident. Pertinent changes/additions are listed here. C. diff colitis This is pt first recurrence of mild disease. She was treated with vanc her first episode. -Check stool studies -Will treat with dificid due to recurrence of disease with oral vanc -Bentyl, zofran, reglan Mild dehydration s/p 2L NS at ER -Will given maintenance LR Estrella's thyroiditis s/p thyroidectomy -On synthroid 125mcg, will continue Arthur's disease She takes hydrocortisone 20mg in AM and 10mg in PM. She was given 100mg hydrocortisone in the ED -Will continue stress dose with 45mg BID Sinus tachycardia Pt on metoprolol 25mg daily for this -Continue Anxiety -Continue clonazepam Chronic Abdominal Pain -Cymbalta 60mg daily to try to get her off opioids -Continue norco VTE ppx: Code Status: Full Diet: clears Dispo: admit to medical, LOS > 2 days Addendum - Attending - Attending Attestation Date/Time: 02/20/20 9224 I personally evaluated the patient and discussed the management with Dr. Jacobs at time of admission. I agree with the History, Examination, Assessment and Plan documented above with any addition or exceptions noted below. Patit notes some blood when she wipes and painful defecation which suggests an anal fissure. She is also concerned whether she has salmonella again.
[2020-02-19] MEDS ORDERED: Ondansetron PF 4 MG/2 ML Vial ONE (19:49)
[2020-02-19] MEDS ORDERED: Acetaminophen 325 MG TAB PO PRN (20:28)
[2020-02-19] MEDS ORDERED: Acetaminophen 650 MG Suppository PR PRN (20:28)
[2020-02-19] MEDS ORDERED: Ondansetron PF 4 MG/2 ML Vial IVP PRN (20:28)
[2020-02-19] MEDS ORDERED: Ondansetron ODT 4 MG TAB PO PRN (20:28)
[2020-02-19] MEDS ORDERED: Sodium Chloride 0.9% 1,000 ML IV SCH (20:30)
[2020-02-19] MEDS ORDERED: Promethazine HCl 12.5 MG in Sodium Chloride 0.9% 50 ML IVPB PRN (20:33)
[2020-02-19] MEDS ORDERED: Fidaxomicin 200 MG TAB PO SCH (21:00)
[2020-02-19] MEDS: Famotidine 20 MG TAB PO SCH (22:08)
[2020-02-19] MEDS: hydrOXYzine 25 MG TAB PO SCH (22:09)
[2020-02-19] MEDS: Lactated Ringer's 1,000 ML IV SCH (22:09)
[2020-02-19] MEDS: HYDROcodone/Acetaminophen 7.5/325 mg Tablet PO PRN (22:10)
[2020-02-19 22:21] VITALS: BMI 35.8
[2020-02-19] MEDS: clonazePAM 1 MG TAB PO PRN (23:48)
[2020-02-20 02:28] LABS: #Lymphocytes 1.6 thou/uL (1.20-3.40); #Monocytes 0.4 thou/uL (0.11-0.59); #Neutrophils 7.3 thou/uL (1.40-6.50); %Basophils 0.2 % (0.0-1.0); %Eosinophils 0.4 % (0.0-10.0); %Monocytes 4.6 % (0.0-10.0); %Neutrophils 77.9 % (42.0-75.0); Mean Corpuscular HGB CONC 33.9 g/dL (32.0-36.0); Mean Corpuscular Hemoglobin 27.6 pg (27.0-31.0); Mean Corpuscular Volume 81.5 fL (78.0-98.0); Mean Platelet Volume 7.7 fL (7.4-10.4); Platelet Count 374 thou/uL (130-400); RBC Distribution Width 16.1 % (11.5-14.5); Red Blood Cell (RBC) Count 3.62 mill/uL (4.20-5.40); White Blood Cell (WBC) Count 9.3 thou/uL (4.8-10.8)
[2020-02-20 02:47] LABS: ALT (SGPT) 14 U/L (8-55); AST (SGOT) 16 U/L (5-34); Albumin 3.6 g/dL (3.5-5.0); Alkaline Phosphatase 75 U/L (40-110); Anion Gap 10 mmol/L (10-20); BUN (Urea Nitrogen) 11 mg/dL (7.0-18.7); Bilirubin, Total 0.4 mg/dL (0.2-1.2); Calc. Creatinine Clearance 134 mL/min (70-130); Calcium 9.6 mg/dL (7.8-10.44); Carbon Dioxide 23 mmol/L (22-29); Chloride 106 mmol/L (98-107); Estimated GFR-MDRD 77; Globulin 3.1 g/dL (2.4-3.5); Glucose 79 mg/dL (70-105); Potassium 3.9 mmol/L (3.5-5.1); Protein, Total 6.7 g/dL (6.0-8.3); Sodium 135 mmol/L (136-145)
[2020-02-20] MEDS ORDERED: Nicotine 21 MG PATCH TD SCH ×2 (04:00→09:00)
[2020-02-20] MEDS ORDERED: Levothyroxine Sodium 125 MCG TAB PO SCH (06:00)
[2020-02-20] MEDS: HYDROcodone/Acetaminophen 7.5/325 mg Tablet PO PRN ×2 (06:19→10:10)
[2020-02-20] MEDS: Lactated Ringer's 1,000 ML IV SCH (06:20)
--- NOTE | 2020-02-20 06:58 | PDOC.FM ---
- Subjective Subjective: Pt complaining of abdominal pain that shoots to her back, says this pain is common for people w/ rahul's disease. Says her rahul's disease is primary, not iatrogenic. + dysuria. No hematuria. Cannot say what her diarrhea looked like or if there was blood since she did not look at it. + foul odor. Denies having reptiles, working w/ chicken, other poultry exposure, swimming in pools/standing water. Works at [employer] and was working w/ a sick kid about 3 weeks ago. - Objective MAR Reviewed: Yes Vital Signs & Weight: Vital Signs (12 hours) Temp Pulse Resp BP Pulse Ox 02/20/20 03:28 97.4 F L 88 16 113/64 97 02/20/20 00:27 97.4 F L 83 18 120/87 97 Weight Weight 91.671 kg I&O: 02/18/20 02/19/20 02/20/20 06:59 06:59 06:59 Intake Total 2019 Output Total Balance 2016 Result Diagrams: 02/20/20 02:17 02/20/20 02:17 Phys Exam - Physical Examination Constitutional: NAD Respiratory: no wheezing, clear to auscultation bilateral Cardiovascular: RRR, no significant murmur Gastrointestinal: soft, no distention, positive bowel sounds moderate suprapubic tenderness Musculoskeletal: no edema, pulses present Psychiatric: A&O x 3 Deviation from normal: blunted affect, normal mood. Dx/Plan (1) Diarrhea Code(s): R19.7 - DIARRHEA, UNSPECIFIED Status: Acute (2) Abdominal pain Code(s): R10.9 - UNSPECIFIED ABDOMINAL PAIN Status: Acute Qualifiers: Abdominal location: left lower quadrant Qualified Code(s): R10.32 - Left lower quadrant pain (3) Intractable nausea and vomiting Code(s): R11.2 - NAUSEA WITH VOMITING, UNSPECIFIED Status: Acute (4) Rahul disease Code(s): E27.1 - PRIMARY ADRENOCORTICAL INSUFFICIENCY Status: Chronic (5) Anxiety Code(s): F41.9 - ANXIETY DISORDER, UNSPECIFIED Status: Chronic (6) Chronic pain Code(s): G89.29 - OTHER CHRONIC PAIN Status: Chronic (7) Hypothyroidism Code(s): E03.9 - HYPOTHYROIDISM, UNSPECIFIED Status: Chronic - Plan Plan: Patient is a 34 yo female who presents with abdominal pain & diarrhea: # Diarrhea - request records from [facility] in [place] - CDiff antigen and toxin neg. D/c fidaxomicin. - Bentyl for pain. Zofran or phenergan for nausea - O&P parasites neg for giardia, crypto, Salmonella, shiga toxin, lactoferrin. - DDx: possible celiac disease in light of anemia, also possible IBS given other autoimmune disorders, # Dehydration, mild - d/c fluids, encourage oral intake. Advance diet # Primary [place]'s disease -continue Hydrocortisone at stress dosing 45 mg BID (total 90 mg/day) -continue home meds # Anemia, normocytic - stable - workup may be pursued outpatient. DDx: normal menstruation, less likely iron deficient since normocytic, no blood in stools and does not appear to be acute or chronic blood loss anemia # Chronic Pain -YOUTH ACCOMMODATION SUPPORT WORKER reviewed -continue home Mcgrew 7/325 # Anxiety -continue home meds: Hydroxyzine, Cymbalta, Clonazepam # Sinus Tachycardia -continue home Metoprolol Diet: Clear liquids. ADAT. VTE: SCDs, Lovenox Code status: FULL Dispo: Stable, observation on medical unit. Anticipate d/c today if tolerating diet well. Addendum - Attending - Attending Attestation Date/Time: 02/20/20 1201 I personally evaluated the patient and discussed the management with Dr. Constantino. I agree with the History, Examination, Assessment and Plan documented above with any addition or exceptions noted below. Patient here with concerns for Cdiff colitis. However, she is both antigen and toxin negative at this facility, and her stool studies are completely benign, including a normal fecal lactoferrin. She has no evidence to support infectious or inflammatory diarrhea. Her vitals are stable. We will work on some pain control with Bentyl as anti-spasmodic and nausea control but she has no requirement at the current time for hospitalization and is stable for discharge.
[2020-02-20] MEDS: hydrOXYzine 25 MG TAB PO SCH (08:34)
[2020-02-20] MEDS: Famotidine 20 MG TAB PO SCH (08:34)
[2020-02-20] MEDS ORDERED: Fludrocortisone Acetate 0.1 MG TAB PO SCH (09:00)
[2020-02-20] MEDS ORDERED: DULoxetine 60 MG CAP PO SCH (09:00)
[2020-02-20] MEDS ORDERED: Enoxaparin Sodium 40 MG/0.4 ML SYRINGE SC SCH (09:00)
[2020-02-20] MEDS ORDERED: Hydrocortisone Sod Succ/PF 100 mg/2 ml Vial IVP SCH (09:00)
[2020-02-20] MEDS ORDERED: Promethazine 25 MG TAB PO SCH (11:30)
[2020-02-20 12:05] LABS: EliA Celiac New Method **** NEW METHOD ****; t-Transglutaminase (tTG) IgA 1.4 EliAU/mL (<7 Negative)
[2020-02-20] MEDS: clonazePAM 1 MG TAB PO PRN (13:01)
[2020-02-20 13:13] VITALS: BP 100/67; TEMP 98.3
--- NOTE | 2020-02-20 18:07 | DIS ---
DATE OF ADMISSION: 02/19/2020 DATE OF DISCHARGE: 02/20/2020 RESIDENT: Maria Del Carmen Constantino MD ADMITTING ATTENDING: Tono Ruffin MD DISCHARGE ATTENDING: Marco Antonio Riggins MD CONSULTS: None. PROCEDURES: None. PRIMARY DIAGNOSES: 1. Abdominal pain, nausea, and vomiting. 2. Diarrhea. 3. Mild dehydration. 4. Mild viral illness. SECONDARY DIAGNOSES: 1. 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 2. Normocytic anemia. 3. Chronic pain. 4. Anxiety. 5. Sinus tachycardia. DISCHARGE MEDICATIONS: 1. Tylenol 650 mg p.o. q.4 hours p.r.n. 2. Phenergan 25 mg rectally q.4 hours p.r.n. 3. Hydroxyzine 25 mg p.o. t.i.d. 4. Hydrocortisone 10 mg p.o. in the evening. 5. Hydrocortisone 20 mg p.o. daily. 6. Rumney 7.5, one tablet p.o. four times daily as needed for pain. 7. Zofran 8 mg p.o. q.8 hours as needed. 8. Clonazepam 1 mg p.o. t.i.d. daily as needed. 9. Fludrocortisone 0.05 mg p.o. daily. 10. Duloxetine 60 mg p.o. daily. 11. Levothyroxine 125 mcg p.o. daily. 12. Bentyl 10 mg p.o. q.i.d. HOSPITAL COURSE: Ligia Lewis is a 34-year-old female with several autoimmune diseases who presented from [place] for admission of what was reported as C difficile colitis. The patient indeed had a negative C diff antigen and toxin result here at our hospital. However, she had a positive C diff PCR at [facility]. For the past 2 to 3 days, she said she has had about 15 to 16 episodes of diarrhea a day. She denies any blood or lightheadedness. She also said she had vomiting. She denied fever or chills. She was complaining of a headache. In the emergency room in [place], the patient was given Zofran, normal saline, hydrocortisone, Bentyl, Haldol, Protonix, and promethazine. Upon transfer to our hospital, labs were ordered including stool studies, lactoferrin, C diff antigen and toxin, ova and parasites, and shiga toxins, and all these results were negative. The only lab still pending was a stool culture at the time of this dictation. The discrepancy between the C diff PCR being positive and antigen/toxin negative was investigated. It was found that PCR can be positive for nontoxic types of C diff in people who are colonized and may not represent a toxic infection that needs to be treated. The patient was monitored during her hospital stay. She had symptoms of a mild viral illness and would be better comfortably treated at home, so she was discharged. DISPOSITION: Stable. DISCHARGE LOCATION: Home. DIET: Regular. ACTIVITY: As tolerated. FOLLOWUP: Follow up with primary care provider in 1 week. DISCHARGE INSTRUCTIONS: ER precautions and return precautions were given to the patient if she should not be able to tolerate p.o. or take her oral steroids for Tipton disease. Job ID: [id number] [id number]
== END 2020-02-20 16:00 | disposition home or self-care (01) ==
LOC: ERS 17:47 → T4-A 18:49
PROVIDERS: ADMIT Family Medicine; ATTEND Family Medicine
DX: A04.72 Enterocolitis due to Clostridium difficile, not specified as recurrent (principal); E03.9 Hypothyroidism, unspecified; E27.1 Primary adrenocortical insufficiency; E86.0 Dehydration; F41.9 Anxiety disorder, unspecified; G89.29 Other chronic pain; D64.9 Anemia, unspecified; E06.3 Autoimmune thyroiditis; R00.0 Tachycardia, unspecified; Z79.899 Other long term (current) drug therapy; Z88.0 Allergy status to penicillin; Z88.1 Allergy status to other antibiotic agents; Z88.8 Allergy status to other drugs, medicaments and biological substances
CPT/HCPCS: 36415; 83516; 83605; 83630; 87045; 87046; 87081; 87324; 87328; 87329; 87427; 87449; 96361; 96365; 96372; 96374; 96375; 96376; G0378; J0500; J1650; J1720; J2405; J2550; Q0162; Q0169

== ENCOUNTER 2022-01-14 14:46 | Emergency (ER) | payer MEDICAID ==
[2022-01-14 16:17] LABS: Bacteria/HPF None Seen HPF (None Seen); Bilirubin Negative (Negative); Blood, Urine 1+ (Negative); Clarity Clear (Clear); Glucose, Urine (Dipstick) Normal (Negative); Ketone, Urine Negative (Negative); Leukocyte Negative Leu/uL (Negative); Nitrite Negative (Negative); Protein, Urine (Dipstick) Negative (Neg-Trace); RBC/HPF 0-3 HPF (0-3); Specific Gravity, Urine 1.014 (1.002-1.036); Squamous Epithelial 0-3 HPF (0-3); Urobilinogen Normal mg/dL (Less than 2); WBC/HPF 0-3 HPF (0-3)
[2022-01-14 16:30] LABS: #Eosinphils 0.1 thou/uL (0.0-0.7); #Lymphocytes 2.1 thou/uL (1.20-3.40); #Monocytes 0.3 thou/uL (0.11-0.59); #Neutrophils 6.7 thou/uL (1.40-6.50); %Basophils 0.5 % (0.0-1.0); %Eosinophils 0.7 % (0.0-10.0); %Lymphocytes 22.6 % (21.0-51.0); %Monocytes 2.8 % (0.0-10.0); %Neutrophils 73.4 % (42.0-75.0); Hemoglobin 13.8 g/dL (12.0-16.0); Mean Corpuscular HGB CONC 33.6 g/dL (32.0-36.0); Mean Corpuscular Hemoglobin 31.8 pg (27.0-31.0); Mean Corpuscular Volume 94.6 fL (78.0-98.0); Mean Platelet Volume 7.3 fL (7.4-10.4); Platelet Count 408 thou/uL (130-400); RBC Distribution Width 13.1 % (11.5-14.5); Red Blood Cell (RBC) Count 4.35 mill/uL (4.20-5.40); White Blood Cell (WBC) Count 9.1 thou/uL (4.8-10.8)
[2022-01-14 16:47] LABS: BHCG - Serum Negative (NEGATIVE); Pregs Control Background? CLEAR/WHITE (CLR/WHITE); Pregs Control Bar Appear? YES (CONTROL BAR)
[2022-01-14 16:49] LABS: ALT (SGPT) 15 U/L (8-55); AST (SGOT) 20 U/L (5-34); Albumin 4.4 g/dL (3.5-5.0); Anion Gap 12 mmol/L (10-20); BUN (Urea Nitrogen) 10 mg/dL (7.0-18.7); Bilirubin, Total 0.6 mg/dL (0.2-1.2); Calc. Creatinine Clearance 0 mL/min (70-130); Calcium 11.2 mg/dL (7.8-10.44); Carbon Dioxide 21 mmol/L (22-29); Chloride 105 mmol/L (98-107); Globulin 3.8 g/dL (2.4-3.5); Glucose 102 mg/dL (70-105); Lipase 56 U/L (8-78); Potassium 4.4 mmol/L (3.5-5.1); Protein, Total 8.2 g/dL (6.0-8.3); Sodium 134 mmol/L (136-145)
[2022-01-14 16:53] LABS: Alkaline Phosphatase 96 U/L (40-110)
[2022-01-14] MEDS ORDERED: Dicyclomine 20 MG/2 ML VIAL ONE (17:48)
[2022-01-14] MEDS ORDERED: Hydrocortisone Sod Succ/PF 100 mg/2 ml Vial ONE ×2 (17:48→18:30)
[2022-01-14] MEDS ORDERED: Ondansetron PF 4 MG/2 ML Vial ONE (17:48)
[2022-01-14] MEDS ORDERED: Ondansetron ODT 8 MG TAB ONE (18:30)
[2022-01-14] MEDS ORDERED: Acetaminophen 500 MG TAB ONE (21:17)
== END 2022-01-14 23:35 | disposition home or self-care (01) ==
LOC: ERS 14:46
DX: R11.2 Nausea with vomiting, unspecified (principal); R10.9 Unspecified abdominal pain; E03.9 Hypothyroidism, unspecified; E27.1 Primary adrenocortical insufficiency; E27.40 Unspecified adrenocortical insufficiency; Z86.718 Personal history of other venous thrombosis and embolism; F17.200 Nicotine dependence, unspecified, uncomplicated; Z79.899 Other long term (current) drug therapy; Z79.01 Long term (current) use of anticoagulants
CPT/HCPCS: 36415; 80053; 81003; 81015; 83690; 84703; 85025; 96372; 96374; 96375; J0500; J1720; J2405; Q0162

== ENCOUNTER 2022-09-07 19:01 | Emergency (ER) | payer OTHER ==
[2022-09-07] MEDS ORDERED: Ketorolac Tromethamine 30 MG/ML VIAL ONE ×2 (21:28→23:20)
[2022-09-07] MEDS ORDERED: Ondansetron PF 4 MG/2 ML Vial ONE ×2 (21:28→23:46)
[2022-09-07 22:01] LABS: Pregnancy Test - Urine (BHCG) Negative (Negative); Pregu Control Background? CLEAR/WHITE (CLR/WHITE); Pregu Control Bar Appear? YES (CONTROL BAR); Specific Gravity 1.007 (1.002-1.036)
[2022-09-07 22:09] LABS: Amphetamine Not Detected (NotDetected); Barbiturates Screen Not Detected (NotDetected); Benzodiazepine Screen Not Detected (NotDetected); Cocaine Metabolite Screen Not Detected (NotDetected); Methadone Not Detected (NotDetected); Methamphetamine Not Detected (NotDetected); Opiate Screen Not Detected (NotDetected); Oxycodone Screen Not Detected (NotDetected); Phencyclidine (PCP) Not Detected (NotDetected); THC/Cannabinoid Screen Not Detected (NotDetected); Tricyclic Screen Not Detected (NotDetected)
[2022-09-07 22:23] LABS: #Basophils 0.1 thou/uL (0.0-0.2); #Eosinphils 0.2 thou/uL (0.0-0.7); #Monocytes 0.6 thou/uL (0.11-0.59); #Neutrophils 4.3 thou/uL (1.40-6.50); %Basophils 0.8 % (0.0-1.0); %Eosinophils 1.9 % (0.0-10.0); %Lymphocytes 43.6 % (21.0-51.0); %Monocytes 6.8 % (0.0-10.0); %Neutrophils 46.9 % (42.0-75.0); Hemoglobin 14.3 g/dL (12.0-16.0); Mean Corpuscular HGB CONC 31.4 g/dL (32.0-36.0); Mean Corpuscular Hemoglobin 28.4 pg (27.0-31.0); Mean Corpuscular Volume 90.4 fL (78.0-98.0); Mean Platelet Volume 8.6 fL (7.4-10.4); Platelet Count 401 thou/uL (130-400); RBC Distribution Width 15.4 % (11.5-14.5); Red Blood Cell (RBC) Count 5.03 mill/uL (4.20-5.40); White Blood Cell (WBC) Count 9.1 thou/uL (4.8-10.8)
[2022-09-07 22:32] LABS: INR-International Normal Ratio 0.9; Prothrombin Time 12.6 sec (12.0-14.7)
[2022-09-07 22:45] LABS: ALT (SGPT) 13 U/L (8-55); AST (SGOT) 23 U/L (5-34); Albumin 4.6 g/dL (3.5-5.0); Alkaline Phosphatase 93 U/L (40-110); Anion Gap 18 mmol/L (10-20); BUN (Urea Nitrogen) 10 mg/dL (7.0-18.7); Bilirubin, Total 0.2 mg/dL (0.2-1.2); Calc. Creatinine Clearance 0 mL/min (70-130); Carbon Dioxide 14 mmol/L (22-29); Chloride 105 mmol/L (98-107); Estimated GFR 98; Globulin 4.1 g/dL (2.4-3.5); Glucose 85 mg/dL (70-105); Protein, Total 8.7 g/dL (6.0-8.3); Sodium 133 mmol/L (136-145)
[2022-09-07] MEDS ORDERED: Ondansetron ODT 4 MG TAB ONE (22:54)
[2022-09-07] MEDS ORDERED: Diazepam 5 MG TAB ONE (22:56)
[2022-09-07] MEDS ORDERED: Hydrocortisone Sod Succ/PF 100 mg/2 ml Vial ONE (23:46)
[2022-09-08] MEDS ORDERED: Promethazine 25 MG TAB ONE (01:14)
[2022-09-08] MEDS ORDERED: Iopamidol-370 76% 500 ML 1 ML ONE (10:16)
== END 2022-09-08 01:47 | disposition home or self-care (01) ==
LOC: ERS 19:01
DX: R07.9 Chest pain, unspecified (principal); K76.89 Other specified diseases of liver; E03.9 Hypothyroidism, unspecified; Z87.891 Personal history of nicotine dependence; Z86.718 Personal history of other venous thrombosis and embolism
CPT/HCPCS: 36415; 71045; 71275; 80053; 80306; 81025; 84484; 85025; 85379; 85610; 85730; 93005; 96374; 96375; 96376; J1720; J1885; J2405; Q0162; Q0169; Q9967

== ENCOUNTER 2022-09-12 13:57 | Emergency (ER) | payer OTHER ==
[2022-09-12] MEDS ORDERED: Morphine 4 MG/ML VIAL ONE (15:09)
[2022-09-12] MEDS ORDERED: Ondansetron PF 4 MG/2 ML Vial ONE (15:09)
[2022-09-12] MEDS ORDERED: Hydrocortisone Sod Succ/PF 100 mg/2 ml Vial ONE (15:43)
== END 2022-09-12 16:00 | disposition home or self-care (01) ==
LOC: ERS 13:57
DX: S52.571A Other intraarticular fracture of lower end of right radius, initial encounter for closed fracture (principal); S62.001A Unspecified fracture of navicular [scaphoid] bone of right wrist, initial encounter for closed fracture; R11.2 Nausea with vomiting, unspecified; E03.9 Hypothyroidism, unspecified; Z86.718 Personal history of other venous thrombosis and embolism; Z87.891 Personal history of nicotine dependence; W18.39XA Other fall on same level, initial encounter
CPT/HCPCS: 96374; 96375; J1720; J2270; J2405

== ENCOUNTER 2022-09-15 09:46 | Outpatient (CLI) | payer OTHER ==
[2022-09-15 11:44] LABS: Hemoglobin 11.4 g/dL (12.0-15.5); Mean Corpuscular HGB CONC 32.2 g/dL (32.0-36.0); Mean Corpuscular Hemoglobin 28.1 pg (27.0-33.0); Mean Corpuscular Volume 87.2 fl (81.6-98.3); Mean Platelet Volume 11.5 fl (7.4-10.4); Platelet Count 396 10x3/uL (150-450); RBC Distribution Width 16.2 % (11.5-14.5); Red Blood Cell (RBC) Count 4.06 10x6/uL (3.90-5.03); White Blood Cell (WBC) Count 5.9 10x3/uL (3.5-10.5)
[2022-09-15 12:11] LABS: Anion Gap 14 mmol/L (10-20); BUN (Urea Nitrogen) 10 mg/dL (7.0-18.7); Calc. Creatinine Clearance 0 mL/min (70-130); Carbon Dioxide 22 mmol/L (22-29); Chloride 103 mmol/L (98-107); Estimated GFR 111; Glucose 79 mg/dL (70-105); Potassium 4.5 mmol/L (3.5-5.1); Sodium 134 mmol/L (136-145)
== END 2022-09-15 09:47 | disposition home or self-care (01) ==
LOC: LABBT 09:46
PROVIDERS: ATTEND Orthopaedic Surgery
DX: Z01.812 Encounter for preprocedural laboratory examination (principal); S52.501A Unspecified fracture of the lower end of right radius, initial encounter for closed fracture
CPT/HCPCS: 80048; 85027

== ENCOUNTER → 2022-09-16 | Day surgery (SDC) | payer OTHER ==
[2022-09-15 12:35] VITALS: BMI 25.0
[~2022-09-16] MED LIST: Bupivacaine HCl 0.5%/Epinephrine 1:200,000/PF 30 ml Vial ONE; Dexamethasone 20 MG/5 ML VIAL ONE; Famotidine/PF 20 mg/2ml Vial ONE; Fentanyl 100 MCG/2 ML VIAL ONE; HYDROcodone/Acetaminophen 7.5/325 mg Tablet ONE; HYDROmorphone 0.5 MG/0.5 ML SYRINGE ONE; Hydrocortisone Sod Succ/PF 100 mg/2 ml Vial IVP SCH; Hydrocortisone Sod Succ/PF 100 mg/2 ml Vial ONE; Levofloxacin 500 mg/D5W 100 ml Premix Bag ONE; Midazolam HCl 2 mg/2 ml Vial ONE; Neomycin-Polymyxin 1 ML AMP ONE; Ondansetron PF 4 MG/2 ML Vial ONE; PROPOFOL 200 MG/20 ML VIAL ONE; Promethazine HCl 25 MG/ML VIAL ONE; Propofol 500 MG/50 ML VIAL ONE; Ropivacaine 0.5% HCl/PF (150 MG/30 ML VIAL) ONE; fentaNYL Citrate/PF 100 MCG/2 ML SYRINGE ONE
== END | disposition home or self-care (01) ==
LOC: SDC 10:29
PROVIDERS: ATTEND Orthopaedic Surgery
PROC: 0PSH04Z Reposition Right Radius with Internal Fixation Device, Open Approach (ICD-10-PCS; principal; 2022-09-16)
DX: S52.571A Other intraarticular fracture of lower end of right radius, initial encounter for closed fracture (principal); E27.1 Primary adrenocortical insufficiency; E06.3 Autoimmune thyroiditis; Z86.718 Personal history of other venous thrombosis and embolism; Z79.01 Long term (current) use of anticoagulants; Z79.52 Long term (current) use of systemic steroids; Z79.890 Hormone replacement therapy; Z79.899 Other long term (current) drug therapy; Z88.0 Allergy status to penicillin; Z88.1 Allergy status to other antibiotic agents; W19.XXXA Unspecified fall, initial encounter; Y93.51 Activity, roller skating (inline) and skateboarding
CPT/HCPCS: C1713; J1100; J1170; J1720; J1956; J2250; J2405; J2550; J2704; J2795; J3010; S0028